=== PATIENT | male | born 1985 | race Caucasian/White ===

== ENCOUNTER → 2016-05-08 | Day surgery (SDC) | payer OTHER | LOC: RAD 12:30 | PROVIDERS: ATTEND Physician Assistant | PROC: BP08ZZZ Plain Radiography of Right Shoulder (ICD-10-PCS; principal; 2016-05-08) | DX: M24.011 Loose body in right shoulder (principal); M25.511 Pain in right shoulder | CPT/HCPCS: 73222; 73040; 77002; A9576 ==

== ENCOUNTER 2016-12-15 19:56 | Emergency (ER) | payer SELFPAY ==
[2016-12-15] MEDS ORDERED: LORAZEPAM INJ 2 MG/1 ML VIAL IV ONE (20:23)
--- NOTE | 2016-12-15 20:23 | ER Document Report ---
ED General - General Mode of Arrival: Ambulatory Information source: Patient TRAVEL OUTSIDE OF THE U.[place]. IN LAST 30 DAYS: No - HPI Similar symptoms previously: Yes Recently seen / treated by doctor: No <LETI VALVERDE - Last Filed: 12/15/16 22:24> <TERESITA TRUONG - Last Filed: 12/16/16 03:18> - General Chief Complaint: S/S of Possible Stroke Stated Complaint: FACIAL NUMBNESS, HEAD PRESSURE Time Seen by Provider: 12/15/16 20:12 Notes: Patient is a 31 year old male presenting to the emergency department for numbness and tingling to his face. Patient states for the last few months he has had tingling in his face and hand that starts when he is on his way home from work. Patient states it usually goes away by the time he gets home. Patient states it also happens in the evenings. Patient started a new job 4-5 months ago at the [employer] in [place] so he has been driving there to work. Patient states today when he was on his way home he had tingling in his right face just under his right eye and then it developed into numbness on the left side of his face and his left eye. Patient states he also has some numbness to his hands. Patient states this is the first time he has gotten numbness. Patient also has some slurred speech. Patient had 2 beers last night and the night before. Patient states he smokes 4-5 cigarettes a day. Patient had a grandmother pass away from a [place] and stroke. Patient has no known allergies. Patient has no known medical problems and is not on any regular medications. Patient had right rotator cuff surgery. (LETI VALVERDE) - Related Data Allergies/Adverse Reactions: No Known Allergies Allergy (Unverified 12/15/16 20:02) Past Medical History - General Information source: Patient - Social History Smoking Status: Current Every Day Smoker Cigarette use (# per day): Yes - #4-5 Chew tobacco use (# tins/day): No Smoking Education Provided: No Frequency of alcohol use: Occasional Drug Abuse: None Family History: CVA - grandmother, Other - [place]-grandmother Patient has suicidal ideation: No Patient has homicidal ideation: No Past Surgical History: Reports: Hx Orthopedic Surgery - right rotator cuff <LETI VALVERDE - Last Filed: 12/15/16 22:24> Review of Systems - Review of Systems Constitutional: No symptoms reported EENT: No symptoms reported Cardiovascular: No symptoms reported Respiratory: No symptoms reported Gastrointestinal: No symptoms reported Genitourinary: No symptoms reported Male Genitourinary: No symptoms reported Musculoskeletal: No symptoms reported Skin: No symptoms reported Hematologic/Lymphatic: No symptoms reported Neurological/Psychological: See HPI, Numbness, Tingling -: Yes All other systems reviewed and negative <LETI VALVERDE - Last Filed: 12/15/16 22:24> Physical Exam <LETI VALVERDE - Last Filed: 12/15/16 22:24> <TERESITA TRUONG - Last Filed: 12/16/16 03:18> - Vital signs Vitals: Resp 16 12/15/16 20:12 - Notes Notes: GENERAL: Alert, interacts well. Mild distress. HEAD: Normocephalic, atraumatic. No facial motor weakness. EYES: Appear normal. Pupils equal, round, and reactive to light. ENT: Moist mucus membranes. When patient sticks out tongue it protrudes midline but is rolled. NECK: Full range of motion. Supple. Trachea midline. LUNGS: Clear to auscultation bilaterally, no wheezes, rales, or rhonchi. Hyperventilating. No respiratory distress. HEART: Regular rate and rhythm. No murmurs, gallops, or rubs. ABDOMEN: Soft, non-tender. Non-distended. Normal bowel sounds. EXTREMITIES: Moves all 4 extremities spontaneously. Normal strength. Equal receivable clerk. Able to lift both lower extremities off the bed. No edema. NEUROLOGICAL: Alert and oriented x3. Slightly slurred speech. No focal neurological deficits. GCS 15. PSYCH: Normal affect, normal mood. SKIN: Warm, dry, normal turgor. No rashes or lesions noted. (LETI VALVERDE) Course - Laboratory Result Diagrams: 12/15/16 20:24 12/15/16 20:24 <LETI VALVERDE - Last Filed: 12/15/16 22:24> - Laboratory Result Diagrams: 12/15/16 20:24 12/15/16 20:24 - EKG Interpretation by [facility] EKG shows normal: Sinus rhythm, [place], Intervals, QRS Complexes, ST-T Waves <TERESITA TRUONG - Last Filed: 12/16/16 03:18> - Re-evaluation Re-evalutation: 12/15/16 23:05 After Ativan, the patient feels much better. He is now smiling, is not hyperventilating. He is able to protrude his tongue now with normal appearance rather than the U-shaped curvature previously. He states that he does feel back to normal now. 12/16/16 03:17 The patient was not a TPA candidate, as there were no focal deficits found on history or physical, and the history and physical showed this was clearly a psychiatric issue. (TERESITA TRUONG) - Vital Signs Vital signs: Temp Pulse Resp BP Pulse Ox 98.1 F 20 113/60 99 12/15/16 23:33 12/15/16 23:33 12/15/16 23:33 12/15/16 23:33 - Laboratory Laboratory results interpreted by me: 12/15/16 12/15/16 20:24 21:10 Carbon Dioxide 20 L Calcium 10.4 H Total Bilirubin 1.6 H Direct Bilirubin 0.5 H Ur Leukocyte Esterase TRACE H Discharge <LETI VALVERDE - Last Filed: 12/15/16 22:24> <TERESITA TRUONG - Last Filed: 12/16/16 03:18> - Discharge Clinical Impression: Anxiety, Hyperventilation, Panic attack as reaction to stress Condition: Stable Disposition: HOME, SELF-CARE Additional Instructions: Anxiety: The physician feels that your problems are being caused by anxiety. Anxiety affects your health in many ways. Anxiety alone can cause palpitations , sweats, chest pains, abdominal pains, shortness of breath, and headaches. It contributes to ulcer disease, high blood pressure, irritable bowel syndrome, and has been shown to cause flare-ups of many other diseases. Anxiety is not a simple disorder to treat. If the anxiety is due to recent life stresses, you may simply need time to "work through" the changes. If the anxiety is due to an underlying unhappiness with yourself or due to psychiatric disturbance, professional help will be needed. Your physician can refer you for further help if needed. Anti-anxiety medication is occasionally given if the stress is acute or if you are having trouble sleeping. Chronic or frequent use of these medications is not a good idea because the body becomes reliant on it, preventing you from dealing with life's normal stresses. Referrals: ÁLVARO GARCÍA, DO [Primary Care Provider] - Follow up as needed Scribe Attestation: 12/15/16 23:07 I personally performed the services described in the documentation, reviewed and edited the documentation which was dictated to the scribe in my presence, and it accurately records my words and actions. (TERESITA TRUONG) Scribe Documentation - Scribe Written by Matteo:: Matteo Arnett 12/15/2016 22:24 acting as scribe for :: Alisia <LETI VALVERDE - Last Filed: 12/15/16 22:24>
[2016-12-15] MEDS ORDERED: DIPHENHYDRAMINE HCL 50 MG/ML VIAL IV ONE (20:24)
[2016-12-15] MEDS ORDERED: NORMAL SALINE 1000 ML 1,000 ML IV ONE (20:24)
[2016-12-15 20:36] LABS: ABSOLUTE BASOPHILS # (AUTO) 0.1 10^3/uL (0.0-0.2); ABSOLUTE EOSINOPHILS # (AUTO) 0.2 10^3/uL (0.0-0.6); ABSOLUTE LYMPHOCYTES (AUTO) 2.8 10^3/uL (0.5-4.7); ABSOLUTE MONOCYTES (AUTO) 0.4 10^3/uL (0.1-1.4); ABSOLUTE NEUT (AUTO) 3.2 10^3/uL (1.7-8.2); EOSINOPHILS % (AUTO) 3.6 % (0-6); HEMATOCRIT 44.1 % (37.9-51.0); HEMOGLOBIN 15.5 g/dL (13.5-17.0); HGB HCT DIFFERENCE 2.4; LYMPHOCYTES % (AUTO) 41.8 % (13-45); MEAN CORPUSCULAR HEMOGLOBIN 31.8 pg (27.0-33.4); MEAN CORPUSCULAR HGB CONC 35.2 g/dL (32.0-36.0); MEAN CORPUSCULAR VOLUME 91 fl (80-97); MONOCYTES % (AUTO) 5.9 % (3-13); RED BLOOD COUNT 4.88 10^6/uL (4.35-5.55); RED CELL DISTRIBUTION WIDTH 13.7 % (11.5-14.0); SEGMENTED NEUTROPHILS % (AUTO) 47.7 % (42-78); WHITE BLOOD COUNT 6.6 10^3/uL (4.0-10.5)
[2016-12-15 20:46] LABS: ALANINE AMINOTRANSFERASE 21 U/L (21-72); ALBUMIN 4.9 g/dL (3.5-5.0); ALKALINE PHOSPHATASE 73 U/L (38-126); ANION GAP 15 (5-19); ASPARTATE AMINO TRANSFERASE 19 U/L (17-59); BILIRUBIN,DIRECT 0.5 mg/dL (0.0-0.4); BILIRUBIN,TOTAL 1.6 mg/dL (0.2-1.3); BLOOD UREA NITROGEN 12 mg/dL (7-20); CALCIUM 10.4 mg/dL (8.4-10.2); CARBON DIOXIDE 20 mmol/L (22-30); CHLORIDE 107 mmol/L (98-107); CREATININE RESULT 1.06 mg/dL (0.52-1.25); GLUCOSE 91 mg/dL (75-110); POTASSIUM 3.9 mmol/L (3.6-5.0); SODIUM 141.5 mmol/L (137-145); TOTAL PROTEIN 7.4 g/dL (6.3-8.2)
--- NOTE | 2016-12-15 20:50 | RADIOLOGY REPORT (SQ) ---
EXAM DESCRIPTION: CT HEAD WITHOUT COMPLETED DATE/TIME: 12/15/2016 8:32 pm REASON FOR STUDY: paraethesias, right face weakness COMPARISON: None. TECHNIQUE: Axial images acquired through the brain without intravenous contrast. Images reviewed wi th bone, brain and subdural windows. Images stored on PACS. All CT scanners at this facility use dose modulation, iterative reconstruction, and/or weight based d osing when appropriate to reduce radiation dose to as low as reasonably achievable (ALARA). [facility]: Dose Right [facility]: CareDose [facility]: Dose Right [facility]: Teradose 4D [facility]: Smart [employer] RADIATION DOSE: Up-to-date CT equipment and radiation dose reduction techniques were employed. CTDIv ol: 64.6 mGy. DLP: 1163 mGy-cm. mGy. LIMITATIONS: None. FINDINGS: VENTRICLES: Normal size and contour. CEREBRUM: No masses. No hemorrhage. No midline shift. No evidence for acute infarction. Normal gra y/white matter differentiation. No areas of low density in the white matter. CEREBELLUM: No masses. No hemorrhage. No alteration of density. No evidence for acute infarction. EXTRAAXIAL SPACES: No fluid collections. No masses. ORBITS AND GLOBE: No intra- or extraconal masses. Normal contour of globe without masses. CALVARIUM: No fracture. PARANASAL SINUSES: No fluid or mucosal thickening. SOFT TISSUES: No mass or hematoma. OTHER: No other significant finding. IMPRESSION: NORMAL BRAIN CT WITHOUT CONTRAST. COMMENT: Quality ID # [id number]: Final reports with documentation of one or more dose reduction techniques (e.g., Automated exposure control, adjustment of the mA and/or kV according to patient size, use of iterative reconstruction technique) TECHNICAL DOCUMENTATION: JOB ID: [id number] [employer]- All Rights Reserved
--- NOTE | 2016-12-15 20:57 | RADIOLOGY REPORT (SQ) ---
EXAM DESCRIPTION: CHEST SINGLE VIEW COMPLETED DATE/TIME: 12/15/2016 8:41 pm REASON FOR STUDY: paraethesias, right face weakness COMPARISON: None. EXAM PARAMETERS: NUMBER OF VIEWS: One view. TECHNIQUE: Single frontal radiographic view of the chest acquired. RADIATION DOSE: NA LIMITATIONS: None. FINDINGS: LUNGS AND PLEURA: No opacities, masses or pneumothorax. No pleural effusion. MEDIASTINUM AND HILAR STRUCTURES: No masses. Contour normal. HEART AND VASCULAR STRUCTURES: Heart normal in size. Normal vasculature. BONES: No acute findings. HARDWARE: None in the chest. OTHER: No other significant finding. IMPRESSION: NO ACUTE RADIOGRAPHIC FINDING IN THE CHEST. TECHNICAL DOCUMENTATION: JOB ID: [id number]
[2016-12-15 21:30] LABS: AMORPHOUS SEDIMENT,URINE TRACE /HPF; APPEARANCE,URINE SLIGHTLY-CLOUDY; BILIRUBIN,URINE NEGATIVE (NEGATIVE); GLUCOSE, URINE NEGATIVE (NEGATIVE); KETONES,URINE NEGATIVE (NEGATIVE); LEUKOCYTE ESTERASE,URINE TRACE (NEGATIVE); NITRITE,URINE NEGATIVE (NEGATIVE); PROTEIN,URINE NEGATIVE (NEGATIVE); URINE SPECIFIC GRAVITY 1.012; UROBILINOGEN,URINE NEGATIVE mg/dL (<2.0)
[2016-12-15 21:37] LABS: URINE BARBITURATES SCREEN NEGATIVE; URINE METHADONE SCREEN NEGATIVE; URINE OPIATES LOW NEGATIVE; URINE PHENCYCLIDINE SCREEN NEGATIVE
[2016-12-15 23:34] VITALS: BP 113/60
--- NOTE | 2016-12-16 23:31 | EKG REPORT ---
SEVERITY:- NORMAL ECG - SINUS RHYTHM : Confirmed by: Merly Casillas 16-Dec-2016 23:31:28
== END 2016-12-15 23:34 | disposition home or self-care (01) ==
LOC: ER 19:56
DX: F41.9 Anxiety disorder, unspecified (principal); R06.4 Hyperventilation; F43.0 Acute stress reaction; R51 Headache; R20.0 Anesthesia of skin; F17.210 Nicotine dependence, cigarettes, uncomplicated
CPT/HCPCS: 93005; 99285; 96361; 96374; 96375; 36415; 85025; 80053; 81001; 80307; 71010; 70450; 93010; J1200; J2060; J7030

== ENCOUNTER 2017-09-28 08:58 | Emergency (ER) | payer OTHER ==
[2017-09-28] MEDS ORDERED: ALBUTEROL SULFATE HFA (90 MCG/PUFF) 8 GM MDI (1 MDI/ER DISP) IH ONE (09:15)
[2017-09-28] MEDS ORDERED: KETOROLAC TROMETHAMINE 60 MG/2 ML SDV IM ONE (09:15)
--- NOTE | 2017-09-28 09:15 | ER Document Report ---
ED Respiratory Problem - General Mode of Arrival: Ambulatory Information source: Patient TRAVEL OUTSIDE OF THE [place] IN LAST 30 DAYS: No <ARUNA MENDEZ - Last Filed: 09/28/17 09:17> <BRIONNA JOSÉ - Last Filed: 09/29/17 15:22> - General Chief Complaint: Chest Pain Stated Complaint: COUGH/LEFT SIDE PAIN Time Seen by Provider: 09/28/17 09:14 Notes: Patient is a 32-year-old male who presents to the emergency department today with complaints of 3 days of a cough, now with developing chest pain associated with this cough. Patient states initially he only had the cough and the pain began a few hours later. Patient states his cough is nonproductive and he has not had any fevers. Patient denies a history of PE/DVT, any long trips or immobilization, hemoptysis, leg swelling, or history of cancer. (ARUNA MENDEZ) - Related Data Allergies/Adverse Reactions: No Known Allergies Allergy (Verified 09/28/17 09:16) Past Medical History - General Information source: Patient - Social History Smoking Status: Current Every Day Smoker Cigarette use (# per day): Yes Frequency of alcohol use: None Drug Abuse: None Lives with: Family Family History: Reviewed & Not Pertinent, CVA - grandmother, Other - [place]- grandmother Renal/ Medical History: Denies: Hx Peritoneal Dialysis Past Surgical History: Reports: Hx Orthopedic Surgery - right rotator cuff <ARUNA MENDEZ - Last Filed: 09/28/17 09:17> <BRIONNA JOSÉ - Last Filed: 09/29/17 15:22> - Medical History Notes: Psoriatic arthritis (ARUNA MENDEZ) Review of Systems - Review of Systems Constitutional: See HPI, Fever EENT: No symptoms reported Cardiovascular: No symptoms reported Respiratory: See HPI, Cough, Hurts to breathe Gastrointestinal: No symptoms reported Genitourinary: No symptoms reported Male Genitourinary: No symptoms reported Musculoskeletal: No symptoms reported Skin: No symptoms reported Hematologic/Lymphatic: No symptoms reported Neurological/Psychological: No symptoms reported -: Yes All other systems reviewed and negative <ARUNA MENDEZ - Last Filed: 09/28/17 09:17> Physical Exam <ARUNA MENDEZ - Last Filed: 09/28/17 09:17> <BRIONNA JOSÉ - Last Filed: 09/29/17 15:22> - Vital signs Vitals: Temp Pulse Resp BP Pulse Ox 98.5 F 92 18 142/80 H 95 09/28/17 09:07 09/28/17 09:07 09/28/17 09:07 09/28/17 09:07 09/28/17 09:07 - Notes Notes: Physical Exam: General: Alert, appears well. HEENT: Normocephalic. Atraumatic. PERRL. Extraocular movements intact. Oropharynx clear. Neck: Supple. Non-tender. Respiratory: No respiratory distress. Clear and equal breath sounds bilaterally. Cardiovascular: Regular rate and rhythm. Abdominal: Normal Inspection. Non-tender. No distension. Normal Bowel Sounds. Back: Non-tender. No deformity or step off. Extremities: Moves all four extremities. Upper extremities: Normal inspection. Normal ROM. Lower extremities: Normal inspection. No edema. Normal ROM. Neurological: Normal cognition. AAOx4. Normal speech. Psychological: Normal affect. Normal Mood. Skin: Warm. Dry. Normal color. (ARUNA MENDEZ) Course <ARUNA MENDEZ - Last Filed: 09/28/17 09:17> - Diagnostic Test Radiology reviewed: Image reviewed - NAD - EKG Interpretation by [facility] EKG shows normal: Sinus rhythm Rate: Normal Rhythm: NSR <BRIONNA JOSÉ - Last Filed: 09/29/17 15:22> - Re-evaluation Re-evalutation: 09/28/17 09:59 X-ray shows no concerning findings EKG shows no concerning findings patient well -appearing nontoxic with normal vitals. States that Toradol and albuterol inhaler has helped with his discomfort. Will treat his pleurisy with 5 days of steroids and albuterol inhaler provided. Return precautions were provided. HEART SCORE 0, PERC negative (BRIONNA JOSÉ) - Vital Signs Vital signs: Temp Pulse Resp BP Pulse Ox 98.6 F 80 18 127/73 H 97 09/28/17 10:08 09/28/17 10:08 09/28/17 09:07 09/28/17 10:08 09/28/17 10:08 Discharge <ARUNA MENDEZ - Last Filed: 09/28/17 09:17> <BRIONNA JOSÉ - Last Filed: 09/29/17 15:22> - Discharge Clinical Impression: Pleurisy Condition: Good Disposition: HOME, SELF-CARE Instructions: Pleurisy ([facility]) Additional Instructions: Please use inhaler 2 puffs every 4 hours as needed Prescriptions: Prednisone [Deltasone 20 mg Tablet] 2 tab PO DAILY 5 Days #10 tablet Referrals: ÁLVARO GARCÍA DO [NO LOCAL MD] - Follow up as needed Scribe Attestation: 09/29/17 15:22 I personally performed the services described documentation, reviewed and edited the documentation which was dictated to describe my presence, and it accurately records my words and actions. (BRIONNA JOSÉ) Scribe Documentation - Scribe Written by Matteo:: Matteo Lin, 09/28/2017 0929 acting as scribe for :: Roni <ARUNA MENDEZ - Last Filed: 09/28/17 09:17>
--- NOTE | 2017-09-28 09:38 | RADIOLOGY REPORT (SQ) ---
EXAM DESCRIPTION: CHEST 2 VIEWS COMPLETED DATE/TIME: 09/28/2017 9:28 am REASON FOR STUDY: chest pain COMPARISON: None. EXAM PARAMETERS: NUMBER OF VIEWS: two views TECHNIQUE: Digital Frontal and Lateral radiographic views of the chest acquired. RADIATION DOSE: NA LIMITATIONS: none FINDINGS: LUNGS AND PLEURA: No opacities, masses or pneumothorax. No pleural effusion. MEDIASTINUM AND HILAR STRUCTURES: No masses or contour abnormalities. HEART AND VASCULAR STRUCTURES: Heart normal size. No evidence for failure. BONES: No acute findings. HARDWARE: None in the chest. OTHER: No other significant finding. IMPRESSION: NO ACUTE RADIOGRAPHIC FINDING IN THE CHEST. TECHNICAL DOCUMENTATION: JOB ID: [id number] [employer]- All Rights Reserved Reading location - IP/workstation name: [email or web address]
[2017-09-28 10:15] VITALS: BP 127/73
--- NOTE | 2017-09-28 10:46 | EKG REPORT ---
SEVERITY:- NORMAL ECG - SINUS RHYTHM : Confirmed by: Aidee Love MD 28-Sep-2017 10:46:13
== END 2017-09-28 10:18 | disposition home or self-care (01) ==
LOC: ER 08:58
DX: R09.1 Pleurisy (principal); F17.210 Nicotine dependence, cigarettes, uncomplicated
CPT/HCPCS: 93005; 99285; 96372; 71046; 93010; J1885; J3490

== ENCOUNTER → 2019-02-04 | Outpatient (CLI) | payer OTHER ==
--- NOTE | 2019-02-05 07:34 | XCELERA REPORT ---
[address] [address] Upper Extremity Venous Evaluation Name: DEREK SOMERS Age: 33 yrs Gender: Male : 1985 Patient Status: Outpatient Patient Location: Study Date: 02/04/2019 02:08 PM Procedure: Unilateral duplex scan of the left upper extremity veins was performed, including responses to compression and other maneuvers. Reason For Study: LUE SWELLING Ordering Physician: ANETTE KUMAR Performed By: Bentley Hernandez Left Sided Venous Evaluation Abnormal vessel filling, no compression or Colour flow , enlarged veins in the Cephalic vein from wrist to antecubital fossa. veins. Other veins are normal in appearance. Interpretation Summary No duplex evidence of DVT or obstruction in the left upper extremity. Quite extensive Superficial Phlebitis restricted to the Cephalic vein. : ANETTE KUMAR > Jude Dennis
== END ==
LOC: SP 13:48
PROVIDERS: ATTEND Physician Assistant
DX: I80.8 Phlebitis and thrombophlebitis of other sites (principal)
CPT/HCPCS: 93971

== ENCOUNTER 2019-02-27 13:15 | Emergency (ER) | payer OTHER ==
[2019-02-27] MEDS ORDERED: IBUPROFEN 600 MG TABLET PO ONE (13:38)
--- NOTE | 2019-02-27 13:46 | ER Document Report ---
ED Medical Screen (RME) - General Chief Complaint: left arm pain Stated Complaint: LEFT ARM PAIN Time Seen by Provider: 02/27/19 13:37 Primary Care Provider: ANETTE KUMAR PA [Primary Care Provider] - Follow up as needed Notes: Patient is a 33-year-old male presents to the emergency department for swelling noted to his left upper extremity. Patient voices he does have a history of thrombophlebitis. Was recently treated with Keflex. States his primary care doctor Dr. Kessler told him to come to the emergency department for an ultrasound and blood work as the pain has increased and now moved up his arm. Physical exam somewhat limited as patient has a long sleeve shirt on and a sweater on. Patient is in triage. GENERAL: Alert, interacts well. No acute distress. SKIN: Warm, dry, normal turgor. General tenderness noted left forearm along distal vein. No swelling noted. Capillary refill less than 2 seconds distally. I have greeted and performed a rapid initial assessment of this patient. A comprehensive ED assessment and evaluation of the patient, analysis of test results and completion of the medical decision making process will be conducted by additional ED providers. I have specifically instructed the patient or family members with the patient to immediately return to any nursing staff should anything change in the patient's condition or with their chief complaint. This medical record was dictated with voice recognizing software. There may be grammatical, syntax errors that are unintended. TRAVEL OUTSIDE OF THE [place] IN LAST 30 DAYS: No - Related Data Allergies/Adverse Reactions: No Known Allergies Allergy (Verified 09/28/17 09:16) Past Medical History - Social History Chew tobacco use (# tins/day): No Frequency of alcohol use: None Drug Abuse: None Renal/ Medical History: Denies: Hx Peritoneal Dialysis Musculoskeltal Medical History: Reports Hx Arthritis Past Surgical History: Reports: Hx Orthopedic Surgery - right rotator cuff Doctor's Discharge - Discharge Referrals: ANETTE KUMAR PA [Primary Care Provider] - Follow up as needed
--- NOTE | 2019-02-27 14:33 | ER Document Report ---
ED Extremity Problem, Upper - General Chief Complaint: Arm Pain Stated Complaint: LEFT ARM PAIN Time Seen by Provider: 02/27/19 13:37 Primary Care Provider: JOO LOPEZ MD [Primary Care Provider] - 03/02/19 Mode of Arrival: Ambulatory Information source: Patient, [facility] Records Notes: This 33-year-old male patient was sent to the emergency room for venous Doppler studies of the left upper extremity. The patient reports onset of seizure disorder 6 months ago. 3 weeks ago he was found in his driveway after seizures and spent 2 days in the hospital at [facility]. The following weekend he again had seizures and was transferred to [facility]. Very he had multiple IV sticks and IVs in that extremity. He was seen in the office on 02/04/2019, had a venous Doppler done that showed extensive superficial thrombo-phlebitis in the cephalic vein in the dorsal left forearm from the wrist to the antecubital fossa. He was put on Keflex for 5 days. He did well after that until last night when pain began at the proximal forearm and went up the posterior lateral upper arm into the shoulder. He is sent back to the emergency room for repeat venous Doppler studies. TRAVEL OUTSIDE OF THE [place] IN LAST 30 DAYS: No - Related Data Allergies/Adverse Reactions: No Known Allergies Allergy (Verified 09/28/17 09:16) Past Medical History - General Information source: Patient, [facility] Records - Social History Smoking Status: Current Every Day Smoker Cigarette use (# per day): Yes Chew tobacco use (# tins/day): No Smoking Education Provided: No Frequency of alcohol use: None Drug Abuse: None Occupation: Car sales Lives with: Spouse/Significant other Family History: Reviewed & Not Pertinent, CAD - Grandmother, CVA - grandmother Patient has suicidal ideation: No Patient has homicidal ideation: No Neurological Medical History: Reports: Hx Seizures Musculoskeletal Medical History: Reports Hx Arthritis - Psoriatic arthritis Past Surgical History: Reports: Hx Orthopedic Surgery - right rotator cuff Review of Systems - Review of Systems Constitutional: No symptoms reported EENT: No symptoms reported Cardiovascular: No symptoms reported Respiratory: No symptoms reported Gastrointestinal: No symptoms reported Genitourinary: No symptoms reported Musculoskeletal: See HPI Skin: No symptoms reported Hematologic/Lymphatic: No symptoms reported Neurological/Psychological: No symptoms reported - Very good Physical Exam - Vital signs Vitals: Temp Pulse Resp BP Pulse Ox 98.2 F 77 12 144/84 H 98 02/27/19 15:21 02/27/19 15:21 02/27/19 15:21 02/27/19 15:21 02/27/19 15:21 Interpretation: Normal - General General appearance: Appears well, Alert In distress: None - HEENT Head: Normocephalic, Atraumatic Eyes: Normal Pupils: PERRL - Respiratory Respiratory status: No respiratory distress - Very good - Cardiovascular Rhythm: Regular Heart sounds: Normal auscultation Murmur: No - Abdominal Inspection: Normal Bowel sounds: Normal Tenderness: Nontender - Back Back: Normal - Extremities General upper extremity: Other - Left dorsal forearm has palpable cords from the inflamed veins. Left posterior lateral upper arm is tender to palpate. General lower extremity: Normal inspection - Neurological Neuro grossly intact: Yes - Psychological Associated symptoms: Normal affect, Normal mood - Skin Skin Temperature: Warm Skin Moisture: Dry Skin Color: Normal Course - Re-evaluation Re-evalutation: 02/27/19 14:59 Venous Doppler done by the tech shows similar pattern to what was seen on 02/04/2019. Superficial thrombophlebitis from the wrist to the antecubital fossa. She does not see it progressed into the cephalic vein and reports the cephalic and basilic veins are good. There is no superficial phlebitis noted following the upper arm into the shoulder. - Vital Signs Vital signs: Temp Pulse Resp BP Pulse Ox 98.2 F 77 12 144/84 H 98 02/27/19 15:21 02/27/19 15:21 02/27/19 15:21 02/27/19 15:21 02/27/19 15:21 - Laboratory Result Diagrams: 02/27/19 14:16 02/27/19 14:16 - Consults Dr. Lopez Time consulted: 15:00 Consulted provider: follow-up in office Discharge - Discharge Clinical Impression: Superficial thrombophlebitis of left upper extremity Condition: Stable Disposition: HOME, SELF-CARE Additional Instructions: Superficial Thrombo-Phlebitis: You have superficial thrombo-phlebitis. This is an inflammation of the small veins just under the skin with clotting in the vein. The phlebitis causes redness, warmth, and tenderness of the involved area. There is no risk of pulmonary embolism (blood clots travelling to the lung) from this type of phlebitis. The more serious type of phlebitis occurs when the large deep veins become clotted. Treatment usually is elevation of the involved extremity, local moist heat several times daily, and aspirin (or an antiinflammatory medication). It will take several days -- sometimes even a couple of weeks -- for the condition to get better. If you develop wide-spread swelling or deep pain in the extremity, chest pain or shortness of breath, you should call the doctor or go to the hospital emergency room immediately. The venous Doppler today does not look any different from the one done on 02/04/2019. Dr. Lopez wants you to add Naprosyn to your medicine regimen, and continue taking one baby aspirin daily. Limit using the left arm and hand. Elevate the extremity is much as possible. Apply warm compresses to the tender hard veins in your forearm. Follow-up with Dr. Lopez on Saturday or Saturday this week for recheck. RETURN TO THE EMERGENCY ROOM IF ANY NEW OR WORSENING SYMPTOMS. Prescriptions: Naprosyn 500 mg PO BID #[id number] Referrals: JOO LOPEZ MD [Primary Care Provider] - 03/02/19
[2019-02-27 14:35] LABS: ABSOLUTE BASOPHILS # (AUTO) 0.1 10^3/uL (0.0-0.2); ABSOLUTE EOSINOPHILS # (AUTO) 0.2 10^3/uL (0.0-0.6); ABSOLUTE LYMPHOCYTES (AUTO) 2.4 10^3/uL (0.5-4.7); ABSOLUTE MONOCYTES (AUTO) 0.3 10^3/uL (0.1-1.4); ABSOLUTE NEUT (AUTO) 3.9 10^3/uL (1.7-8.2); BASOPHILS % (AUTO) 0.8 % (0-2); EOSINOPHILS % (AUTO) 2.9 % (0-6); HEMATOCRIT 42.8 % (37.9-51.0); HEMOGLOBIN 14.9 g/dL (13.5-17.0); LYMPHOCYTES % (AUTO) 35.2 % (13-45); MEAN CORPUSCULAR HEMOGLOBIN 31.9 pg (27.0-33.4); MEAN CORPUSCULAR HGB CONC 34.9 g/dL (32.0-36.0); MEAN CORPUSCULAR VOLUME 91 fl (80-97); MONOCYTES % (AUTO) 4.7 % (3-13); PLATELET COUNT 268 10^3/uL (150-450); RED BLOOD COUNT 4.68 10^6/uL (4.35-5.55); RED CELL DISTRIBUTION WIDTH 13.7 % (11.5-14.0); SEGMENTED NEUTROPHILS % (AUTO) 56.4 % (42-78); TOTAL CELLS COUNTED % (AUTO) 100 %; WHITE BLOOD COUNT 6.9 10^3/uL (4.0-10.5)
[2019-02-27 14:51] LABS: ALBUMIN 4.5 g/dL (3.5-5.0); ALKALINE PHOSPHATASE 60 U/L (38-126); ANION GAP 10 (5-19); ASPARTATE AMINO TRANSFERASE 17 U/L (17-59); BILIRUBIN,DIRECT 0.1 mg/dL (0.0-0.4); BILIRUBIN,TOTAL 0.8 mg/dL (0.2-1.3); BLOOD UREA NITROGEN 11 mg/dL (7-20); CALCIUM 9.6 mg/dL (8.4-10.2); CARBON DIOXIDE 24 mmol/L (22-30); CHLORIDE 107 mmol/L (98-107); GLUCOSE 91 mg/dL (75-110); POTASSIUM 4.1 mmol/L (3.6-5.0)
[2019-02-27 15:28] VITALS: BP 145/81
--- NOTE | 2019-02-27 20:14 | XCELERA REPORT ---
[address] [address] Upper Extremity Venous Evaluation Name: DEREK SOMERS Age: 33 yrs Gender: Male : 1985 Patient Status: Emergency Patient Location: ER Study Date: 02/27/2019 02:25 PM Procedure: Unilateral duplex scan of the left upper extremity veins was performed, including responses to compression and other maneuvers. Reason For Study: left upper arm Ordering Physician: NATHALY MARIANO Performed By: Tabatha Arce Left Sided Venous Evaluation Normal vessel filling wall to wall, compression and augmentation as well as Colour flow down to the forearm veins. Interpretation Summary Normal compression, patency, spontaneous and phasic flow of the left upper extremity veins. : NATHALY MARIANO > Jude Dennis
== END 2019-02-27 15:30 | disposition home or self-care (01) ==
LOC: ER 13:15
DX: I80.8 Phlebitis and thrombophlebitis of other sites (principal); F17.210 Nicotine dependence, cigarettes, uncomplicated
CPT/HCPCS: 36415; 80053; 85025; 93971; 99284